=== PATIENT | female | born 2000 | race Caucasian/White ===

== ENCOUNTER 2023-11-13 08:14 | Outpatient (RCR) | payer MEDICAID, SELFPAY ==
--- NOTE | 2023-11-14 15:00 | HP.PTEVAL_ITS ---
Patient's Visit Information Visit Information Visit Information: MIRACLE CORDOVA is a 23 year old F referred to Physical Therapy by Dr. Angelo Solorzano DO with a diagnosis of thoracic and lumbar back pain. Date of Evaluation: 11/13/23 Physical Therapist: Ming Gannon DPT Visit Plan Frequency: 1x/Week Duration: 4 Weeks Plan: Start with SKTC, IFC and ice. Slowly progressing with extension progression as tolerated. Start with prone over pillow, slowly lowering if tolerated. Add in neutral spine core activation in pain free ranges. Subjective Subjective: Pt. is here today for her initial evaluation with diagnosis of thoracic and lumbar back pain. Pt. reports having pain for ~3 weeks. She reports no mech of injury, but thinks her pain might have been from driving and hitting a bump and coming down hard. Pt. reports no other things that may have caused her symptoms. She reports pain at worst 10/10, best 3/10. Pt. is a student at [employer]. 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 Pt. reports increased pain with sitting, bending over and is unable to lie on her stomach. Pt. is hopeful to reduce symptoms in order to get back to all work and recreational activities without limitations. Pt. did report feeling a little bit better over the past few days, but still not great. She has also been off school during the same time frame. Pain Lumbar spine: Pain Intensity (Out of 10): 4 Pain Intensity Range: 3 and 10 Objective Objective: POSTURE: Pt. has decent posture in stance. Normal iliac crest height. No wt. lateral shift or wt. shift noted. Pt. tends to sit in slouched posture. pt. reports this is more comfortable. PALPATION: pt. is pretty tender at L4-L5 and S1 region (R side). Pt. is also having some pain near her R SI joint. NEURO: normal sensation and DTR bilaterally. Pt. is able to rise on heels and toes without issues. ROM: LUMBAR SPINE: flexion nil/min loss mild increase NW, extension max loss increase NW, SB min loss bilat increase NW, rotation min/nil loss increase NW. Pt. has close to full B hip ROM, mild increase NW with end range flexion, but no hip pain. MMT: Pt. has no myotomal weakness noted. Slight reduced core strength, most likely due to pain. GAIT: Pt. has fairly normal gait pattern, minimal arm swing and methodical. Special Tests L/S Slump test left side: Negative L/S Slump test right side: Positive L/S Left Straight Leg Raise: Positive L/S Right Straight Leg Raise: Negative Lumbar Standing: Flexion - Mechanical Response: No effect Lumbar Standing: Flexion - Symptoms During Testing: No effect Lumbar Standing: Flexion - Symptoms After Testing: No effect Lumbar Standing: Extension - Mechanical Response: No effect Lumbar Standing: Extension - Symptoms During Testing: Increases Lumbar Standing: Extension - Symptoms After Testing: No worse Lumbar Standing: Right Side [place] - Mechanical Response: No effect Lumbar Standing: Right Side [place] - Symptoms During Testing: No effect Lumbar Standing: Right Side [place] - Symptoms After Testing: No effect Lumbar Standing: Left Side [place] - Mechanical Response: No effect Lumbar Standing: Left Side [place] - Symptoms During Testing: No effect Lumbar Standing: Left Side [place] - Symptoms After Testing: No effect Lumbar Lying: Flexion - Mechanical Response: No effect Lumbar Lying: Flexion - Symptoms During Testing: Decreases Comments:: slightly better Lumbar Lying: Extension - Mechanical Response: No effect Lumbar Lying: Extension - Symptoms During Testing: Increases Lumbar Lying: Extension - Symptoms After Testing: Worse Balance/Special Test Scores Oswestry Low Back Score: 12 Goals Goal 1:: LTG: pt. to be able to sleep throughout the night without increase in symptoms. Goal Time Frame: 2-4 Weeks Goal 2:: LTG: pt. to be educated in proper prophylaxis techniques. Goal Time Frame: 2-4 Weeks Goal 3:: LTG: Pt. to be able to complete all work and school activities without increase in symptoms. Goal Time Frame: 4-6 Weeks Goal 4:: STG: Pt. to be able to sit without increase in symptoms. Goal Time Frame: 2-4 Weeks Goal 5:: LTG: Pt. to have full lumbar ROM without increase in symptoms. Goal Time Frame: 4-6 Weeks Rehabilitation Potential Physical Therapy Diagnosis: Pt. has signs and symptoms consistent with thoracic and lumbar back pain. Pt. has marked loss in ROM and would benefit from PT to work on her ROM and decreasing her symptoms of her lumbar spine. Pt. would benefit from PT to work on the above limitations. Rehabilitation Potential: Good Anticipated Interventions Patient/Client Instruction: Educate patient on: Condition, Plan of Care, Risk Factors and Benefits of Fitness Program For the Purpose of:: To improve health and function, To foster healthy habits, To improve decision making, To facilitate caregiver knowledge, To improve self management, To prevent re-injury and To improve ability to perform tasks related to life management Therapeutic Exercise to Include: Strength training, Power training, Flexibilty training, Gait and locomotor training, Active ROM and Dynamic Lumbar Stabilization For the Purpose of:: To decrease pain, To increase ROM, To improve nutrient delivery to tissue, To increase oxygenation perfusion, To improve muscle performance and motor function, To improve ability to perform ADL's, To increase tolerance to activity/condition/position, To improve performance and independence with ADL's, To improve health of tissue, To decrease soft tissue restriction and To increase flexibility/ROM TENS: Yes Cryotherapy (ice pack, ice massage): Yes Thermo therapy (hot pack): Yes For the Purpose of:: To decrease pain, To decrease swelling/inflammation, To increase ROM, To improve nutrient delivery to tissue and To increase oxygenation perfusion Text: Thank you for the opportunity to evaluate your patient. For Medicare and Medicare HMO plans, please review the plan of care and approve it. It will need to be FAXED BACK to us at [phone] for Medicare purposes. For Medicare only, by signing this I certify the plan of care. Please let me know if there are questions or concerns regarding this plan of care. Physician Signature: ___Date:
--- NOTE | 2024-02-26 08:13 | HP.PTDCNRP_ITS ---
Patient Information Patient Information: MIRACLE CORDOVA was seen in my office for initial evaluation on 11/13/23. The following Plan of Care was established for this patient: POC Established Initial Frequency: 1x/Week Initial Duration: 4 Weeks Anticipated Interventions Patient/Client Instruction: Educate patient on: Condition, Plan of Care, Risk Factors and Benefits of Fitness Program For the Purpose of:: To improve health and function, To foster healthy habits, To improve decision making, To facilitate caregiver knowledge, To improve self management, To prevent re-injury and To improve ability to perform tasks related to life management Therapeutic Exercise to Include: Strength training, Power training, Flexibilty training, Gait and locomotor training, Active ROM and Dynamic Lumbar Stabilization For the Purpose of:: To decrease pain, To increase ROM, To improve nutrient delivery to tissue, To increase oxygenation perfusion, To improve muscle performance and motor function, To improve ability to perform ADL's, To increase tolerance to activity/condition/position, To improve performance and independenc e with ADL's, To improve health of tissue, To decrease soft tissue restriction and To increase flexibility/ROM TENS: Yes Cryotherapy (ice pack, ice massage): Yes Thermo therapy (hot pack): Yes For the Purpose of:: To decrease pain, To decrease swelling/inflammation, To increase ROM, To improve nutrient delivery to tissue and To increase oxygenation perfusion Last Seen Last Seen: This patient was last seen in our office 11/13/23. Pertinent comments regarding their Physical therapy will appear below: Pt. was seen for her initial evaluation for her low back pain. Pt. has not been seen since and will be DC from PT at this point in time. At this point I will be discontinuing this patient from physical therapy. I would be happy to see this patient again in the future if found appropriate by the physician. Thank you! Ming Geos, DPT Balance/Gait/Functional tests Balance/Special Test Scores Oswestry Low Back Score: 12
== END 2023-11-13 19:00 | disposition home or self-care (01) ==
LOC: PT 08:14
PROVIDERS: Referring Provider Orthopaedic Surgery; Visit Provider Orthopaedic Surgery
DX: M54.50 Low back pain, unspecified (principal); M54.6 Pain in thoracic spine
CPT/HCPCS: 97161

== ENCOUNTER → 2024-01-23 | Outpatient (CLI) | payer OTHER, SELFPAY ==
[2024-01-23 17:17] LABS: D-Dimer Quantitative (DVT/PE) 0.27 FEU/ug/m (0.27-0.49)
== END | disposition home or self-care (01) ==
PROVIDERS: Referring Provider Nurse Practitioner Acute Care; Visit Provider Nurse Practitioner Acute Care
DX: U07.1 COVID-19 (principal); R05.1 Acute cough
CPT/HCPCS: 85379